=== PATIENT | female | born 1975 | race Hispanic/Latino ===

== ENCOUNTER → 2017-02-02 | Day surgery (SDC) | payer MEDICARE, MEDICAID ==
[~2017-02-02] VITALS: Ht 167.6 cm; Wt 133.9 kg
[2017-02-02] VITALS (9 sets, daily range): BP systolic 113–155; BP diastolic 72–88; PULSE 65–79; RESP 16–18; O2SAT 95–98
[~2017-02-02] MED LIST: CHOL500051 PO; CYAN500L3 SL; DIME240C2 PO; FINGOLIMOD 0.5 MG PO SCH; LOSA1TAB70 PO; METF500T7 PO; MONT10TA23 PO; SIMV40TA5 PO
--- NOTE | 2017-02-02 18:59 | NUR ---
Nedra Pt here with her mother for her first dose of Gilenya, pt arrived A&Ox3, denies any chest pain, SOB or dizziness. VSS see flow sheet. MD notified, obtained orders for general diet and an ok for patient to take her daily medications. EKG obtained, MD notified of findings. HR 61 but was 40-100 during ECG per tech. MD arrived to the [facility] shortly after the phone call and gave the go ahead to give the patient the medication. The MD also brought the Gilenya protocol that wasn't with the order originally. Pt tolerated the medication without fail, pt denied any ADR or side effects. Reported EKG findings and VS to Dr. Hillman 1800. Ok for pt to discharge and F/U with the MD at tomorrows appointment. Pt discharged with 2 Gilenya packets that were delivered by the clinic this morning.
== END | disposition home or self-care (01) ==
LOC: MOCO 09:04
PROVIDERS: ATTEND Psychiatry & Neurology Neurology
DX: G35 Multiple sclerosis (principal)